=== PATIENT | male | born 1945 | race Caucasian/White ===

== ENCOUNTER 2020-05-19 16:40 | Inpatient (IN) | payer MEDICARE ==
[~2020-05-19] VITALS: Ht 152.4 cm; Wt 46.3 kg
[~2020-05-19 16:40] MED LIST: BENICAR40 MG PO; CLARITIN 10 MG10 MG PO; COZAAR50 MG PO; FARXIGA10 MG PO; FEXOFENADINE HC60 MG PO; FLORINEF 0.1 M0.1 MG PO; GLUCOPHAGE500 MG PO; JANUMET XR 50-1 EACH PO; KAZANO 12.5-1,1 EACH PO; LANTUS INSULIN10 ML SC; MAG 6464 MG PO; MELATONIN 3 MG1 TAB PO; MIDODRINE HCL2.5 MG PO; MIDODRINE HCL5 MG PO; MUCINEX600 MG PO; SYNTHROID25 MCG PO; VITAMIN B-1100 M1 PO
[2020-05-19 17:26] VITALS: BMI 19.9
--- NOTE | 2020-05-19 19:05 | NUR ---
RECIEVED PT SITTING UP IN BED. CL IN REACH. DENIES NEEDS AT THIS TIME. BED IN LOW SIDE RAILS X2. PT IS DEAF. RESP EVEN AND UNLABORED. LUNGS CLEAR. BOWEL ACTIVE X4. CPOC
[2020-05-19 20:00] VITALS: BP 139/75
[2020-05-20 06:06] VITALS: BP 168/84
--- NOTE | 2020-05-20 06:15 | NUR ---
I have reviewed this patient and I concur with the Shift Assessment completed by the Licensed Practical Nurse today this shift.
[2020-05-20 06:21] LABS: BASOPHILS 0.1 % (0-2); EOSINOPHILS 1.4 % (0-7); HEMATOCRIT 32.7 % (42.0-54.0); HEMOGLOBIN 10.8 g/dL (13.5-17.5); IMMATURE GRANULOCYTES 1.6 % (0-5); LYMPHOCYTE ABS# 1.14 10x3/uL (1.32-3.57); MCH 30.3 pg (26.0-34.0); MCV 91.6 fL (80.0-100.0); MEAN PLATELET VOLUME 9.5 fL (7.4-10.4); MONOCYTES 2.8 % (2-11); NEUTROPHIL ABS# 10.78 10x3/uL (1.78-5.38); NEUTROPHILS 85.1 % (40-80); RBC 3.57 10x6/uL (4.20-6.10); RDW 14.2 % (11.5-14.5); WBC 12.7 10x3/uL (4.8-10.8)
[2020-05-20 06:26] LABS: PLATELET COUNT 237 10x3/uL (130-400)
[2020-05-20 06:29] LABS: CALC OSMOLALITY 281 mosm/kg (275-300); CALCIUM 7.5 mg/dL (8.5-10.1); CARBON DIOXIDE 32.6 mmol/L (21.0-32.0); CHLORIDE - SERUM 107 mmol/L (98-107); CREATININE - SERUM 0.6 mg/dL (0.6-1.3); GLUCOSE 97 mg/dL (74-106); SODIUM 142 mmol/L (136-145); UREA NITROGEN 11 mg/dL (7-18); eGFR NON AFRICAN AMERICAN > 90 mL/min (90-120)
[2020-05-20 08:03] VITALS: BP 175/92
--- NOTE | 2020-05-20 09:36 | NUR ---
PATIENT ADMITTED TO REHAB FROM ACUTE FLOOR. HIS PCP IS DR. BLACK. [place] PLANS ARE FOR HIM TO RETURN TO HIS HOME. WILL FOLLOW WITH PATIENT AND WILL ASSIST WITH DC NEEDS.
--- NOTE | 2020-05-20 09:42 | NUR ---
PATIENT REMAINS IN DROPLET ISOLATION. PHYICAL AND OCCUPATIONAL THERAPY IN ROOM WORKING WITH PATIET. DR BLACK INTO SEE PATIENT THIS AM AND NEW ORDERS RECEIVED. PATIENT IS DEAF. CAN COMMUNICATE BY WRITTING NEEDS DOWN OR SIGN LANG. NO NEEDS VOICED AT THIS TIME. WILL CONTINUE WITH PLAN OF CARE.
[2020-05-20 10:46] VITALS: Ht 152.4 cm; Wt 46.3 kg
--- NOTE | 2020-05-20 13:28 | NUR ---
SPEECH THERAPIST IN ROOM. WORKING WITH PATIENT. DROPLET ISOLATION REMAINS
--- NOTE | 2020-05-20 16:10 | NUR ---
EYES OPEN, SITTING UP IN BED WATCHING T.V. CALL LIGHT WITHIN REACH
--- NOTE | 2020-05-20 20:00 | NUR ---
PATIENT RECEIVED SITTING UP IN BED. ASSESSMENT & VITAL SIGNS DONE. NO C/O PAIN OR DISTRESS. FEET ELEVATED ON PILLOW. BED LOW. ALARM ON. CALL LIGHT WITHIN REACH. WILL CONTINUE TO MONITOR.
[2020-05-20 21:00] VITALS: BP 152/80
--- NOTE | 2020-05-21 03:35 | NUR ---
PATIENT EYES CLOSED. RESPIRATIONS 18 & EVEN. BED LOW. CALL LIGHT & BEDSIDE TABLE WITHIN REACH. WILL CONTINUE TO MONITOR.
--- NOTE | 2020-05-21 04:59 | NUR ---
NO LABS TO REVIEW AT THIS TIME. WILL CONTINUE TO MONITOR.
--- NOTE | 2020-05-21 07:50 | NUR ---
PATIENT IS ALERT/ORIENT. DEAF. WRITES DOWN NEEDS OR USING SIGN LANG. TO COMMUNICATE. CALL [facility] WITHIN REACH. STATES NO NEEDS AT THIS TIME. WILL CONTINUE WITH PLAN OF CARE
[2020-05-21 08:00] VITALS: BP 163/84
--- NOTE | 2020-05-21 10:58 | NUR ---
DROPLET ISOLATION REMAINS. PHYSICAL THERAPIST IN PATIENTS ROOM. WORKING WITH PATIENT.
--- NOTE | 2020-05-21 13:43 | NUR ---
PATIENT HELPED INTO BATHROOM. STAND BY ASST WITH WHEELED WALKER
--- NOTE | 2020-05-21 14:37 | NUR ---
PATIENT REMAINS IN DROPLET ISOLATION. EYES CLOSED. CALL LIGHT WITHIN REACH.
--- NOTE | 2020-05-21 20:00 | NUR ---
PATIENT RECEIVED SITTING UP IN BED WATCHING TV. WAVED TO PATIENT, HE WAVED BACK. PATIENT SHOWN STETHOSCOPE. COOPERATIVE WITH ASSESSMENT & VITAL SIGNS. NO C/O PAIN OR DISTRESS. URINAL EMPTIED OF 400 CC OF YELLOW COLOR URINE. BED LOW. ALARM ON. CALL LIGHT & BEDSIDE TABLE WITHIN REACH. WILL CONTINUE TO MONITOR.
[2020-05-21 20:03] VITALS: BP 165/87
--- NOTE | 2020-05-22 00:28 | NUR ---
I have reviewed this patient and I concur with the Shift Assessment completed by the Licensed Practical Nurse today this shift.
--- NOTE | 2020-05-22 03:43 | NUR ---
PATIENT AWAKE ON ROUNDS WATCHING TV. ISOLATION GOWN, N95 MASK,GLOVES ON. PATIENT CALL LIGHT FELL ON FLOOR. URINAL EMPTIED OF 500 CC OF URINE. BED LOW. ALARM ON. CALL LIGHT WITHIN REACH. WILL CONTINUE TO MONITOR.
[2020-05-22 08:00] VITALS: BP 170/93
--- NOTE | 2020-05-22 08:00 | NUR ---
PT RESTING IN BED WITH EYES OPEN CALL LIGHT IN REACH WILL MONITER
--- NOTE | 2020-05-22 17:49 | NUR ---
PT RESTING IN BED WITH EYES OPEN CALL LIGHT IN REACH WILL MONITER
--- NOTE | 2020-05-22 18:37 | NUR ---
I have reviewed this patient and I concur with the Shift Assessment completed by the Licensed Practical Nurse today this shift.
--- NOTE | 2020-05-22 18:40 | NUR ---
I have reviewed this patient and I concur with the Shift Assessment completed by the Licensed Practical Nurse today this shift.
--- NOTE | 2020-05-22 19:40 | NUR ---
PATIENT OFF ISOLATION PER DR. BLACK. ASSESSMENT & VITAL SIGNS DONE. URINAL EMPTIED OF 200 CC OF YELLOW COLOR URINE. NO C/O PAIN OR DISTRESS. WROTE DOWN NEEDS & THEY WERE MET. ALARM ON. CALL LIGHT & SIDETABLE WITHIN REACH. WILL CONTINUE TO MONITOR.
[2020-05-22 19:48] VITALS: BP 162/86
--- NOTE | 2020-05-22 23:25 | NUR ---
I have reviewed this patient and I concur with the Shift Assessment completed by the Licensed Practical Nurse today this shift.
--- NOTE | 2020-05-23 02:27 | NUR ---
PATIENT AWAKE ON ROUNDS. URINAL EMPTIED OF 1000 CC OF CLEAR YELLOW URINE. PATIENT HAD NO NEEDS AT THIS TIME. BED LOW. CALL LIGHT WITHIN REACH. WILL CONTINUE TO MONITOR.
[2020-05-23 06:12] VITALS: BP 171/87
[2020-05-23 09:43] LABS: BASOPHILS 0.2 % (0-2); EOSINOPHILS 0.7 % (0-7); HEMOGLOBIN 11.8 g/dL (13.5-17.5); IMMATURE GRANULOCYTES 0.7 % (0-5); LYMPHOCYTE ABS# 1.18 10x3/uL (1.32-3.57); LYMPHOCYTES 12.2 % (15-50); MCH 30.4 pg (26.0-34.0); MCHC 32.8 g/dL (31.0-37.0); MCV 92.8 fL (80.0-100.0); MEAN PLATELET VOLUME 9.1 fL (7.4-10.4); MONOCYTES 4.1 % (2-11); NEUTROPHIL ABS# 7.95 10x3/uL (1.78-5.38); NEUTROPHILS 82.1 % (40-80); RBC 3.88 10x6/uL (4.20-6.10); WBC 9.7 10x3/uL (4.8-10.8)
[2020-05-23 09:45] LABS: PLATELET COUNT 296 10x3/uL (130-400)
[2020-05-23 09:51] LABS: CALC OSMOLALITY 282 mosm/kg (275-300); CALCIUM 7.9 mg/dL (8.5-10.1); CARBON DIOXIDE 35.5 mmol/L (21.0-32.0); CHLORIDE - SERUM 102 mmol/L (98-107); CREATININE - SERUM 0.6 mg/dL (0.6-1.3); GLUCOSE 234 mg/dL (74-106); POTASSIUM - SERUM 3.2 mmol/L (3.5-5.1); SODIUM 138 mmol/L (136-145); UREA NITROGEN 10 mg/dL (7-18); eGFR NON AFRICAN AMERICAN > 90 mL/min (90-120)
--- NOTE | 2020-05-23 14:59 | NUR ---
PATIENT IS A CLIENT OF [address]
--- NOTE | 2020-05-23 19:05 | NUR ---
RECIEVED PT LYING IN BED WATCHING TV. CL IN REACH. DENIES NEEDS AT THIS TIME. PT IS DEAF AND HAS SPEAKING IMPAIRMENT. BED IN LOW SIDE RAILS X2. BED ALARM ON. RESP EVEN AND UNLABORED. LUNGS CLEAR. BOWEL ACTIVE X4. CPOC
[2020-05-23 20:05] VITALS: BP 178/89
--- NOTE | 2020-05-24 01:24 | NUR ---
I have reviewed this patient and I concur with the Shift Assessment completed by the Licensed Practical Nurse today this shift.
[2020-05-24 08:00] VITALS: BP 170/91
--- NOTE | 2020-05-24 13:53 | NUR ---
Nutrition Re-assessment: Diet: Renal ADA PO intake: 100% x last 4 meals. Patient was OOR at therapy at time of RD visit. Spoke with patient's RN who states that patient needs larger portions because he is eating everything on his tray and would benefit from some weight gain. Last BM: 05/21/20. Wt: 102# (05/20/20) Meds noted: k-dur, thiamin, Magox, metformin Labs noted: K 3.2(L), Glu 234(H), PO4 2.4(L)- 05/18/20 Estimated nutrition needs and nutrition diagnosis unchanged from initial assessment. Recommendations/interventions: -Will change diet to Diabetic as his K is low and most recent PO4 was low, patient does not likely need a potassium and phosphorus restricted diet (renal) in this case. -Will have kitchen send larger portions. -Will continue to honor food preferences. -RD will continue to monitor PO intake and wt trend. -RD will follow-up within 7 days.
--- NOTE | 2020-05-24 19:08 | NUR ---
RECEIVED PT SITTING UP IN BED WATCHING TV. CL IN REACH. DENIES NEEDS AT THIS TIME. BED IN LOW SIDE RAILS X2. BED ALARM ON. PT IS DEAF AND CAN NOT SPEAK. RESP EVEN AND UNLABORED. LUNGS CLEAR. BOWEL ACTIVE X4. CPOC
[2020-05-24 19:20] VITALS: BP 168/87
--- NOTE | 2020-05-25 05:02 | NUR ---
I have reviewed this patient and I concur with the Shift Assessment completed by the Licensed Practical Nurse today this shift.
[2020-05-25 06:58] LABS: CALCIUM 8.5 mg/dL (8.5-10.1); CARBON DIOXIDE 35.9 mmol/L (21.0-32.0); CHLORIDE - SERUM 102 mmol/L (98-107); CREATININE - SERUM 0.6 mg/dL (0.6-1.3); SODIUM 139 mmol/L (136-145); eGFR NON AFRICAN AMERICAN > 90 mL/min (90-120)
[2020-05-25 06:59] LABS: CALC OSMOLALITY 281 mosm/kg (275-300); GLUCOSE 165 mg/dL (74-106); POTASSIUM - SERUM 4.1 mmol/L (3.5-5.1); UREA NITROGEN 13 mg/dL (7-18)
[2020-05-25 07:23] LABS: BASOPHILS 0.8 % (0-2); EOSINOPHILS 1.2 % (0-7); HEMATOCRIT 34.2 % (42.0-54.0); HEMOGLOBIN 11.1 g/dL (13.5-17.5); IMMATURE GRANULOCYTES 0.8 % (0-5); LYMPHOCYTE ABS# 1.63 10x3/uL (1.32-3.57); MCH 30.2 pg (26.0-34.0); MCHC 32.5 g/dL (31.0-37.0); MCV 92.9 fL (80.0-100.0); MEAN PLATELET VOLUME 9.2 fL (7.4-10.4); MONOCYTES 6.3 % (2-11); NEUTROPHIL ABS# 5.43 10x3/uL (1.78-5.38); NEUTROPHILS 69.9 % (40-80); PLATELET COUNT 349 10x3/uL (130-400); RBC 3.68 10x6/uL (4.20-6.10); WBC 7.8 10x3/uL (4.8-10.8)
[2020-05-25 07:27] VITALS: BP 188/96
--- NOTE | 2020-05-25 09:07 | NUR ---
HE IS AWAKE, WRITES ON HIS PAPER. PAIN MED GIVEN FOR HIS LEFT SIDE PAIN. HE TOOK HIS MEDICATIONS WIHTOUT ANY PROBLEMS. THE CALL LIGHT IS WITHIN REACH.
--- NOTE | 2020-05-25 13:43 | NUR ---
TURNED HIM AND PUT ALICIA ON HIS BOTTOM. THE CALL LIGHT IS WITHIN REACH.
--- NOTE | 2020-05-25 19:08 | NUR ---
RECIEVED PT LYING IN BED WATCHING TV. CL IN REACH. DENIES NEEDS AT THIS TIME. BED IN LOW SIDE RAILS X2. PT IS DEAF AND USES SIGN TO COMMUNICATE. RESP EVEN AND UNLABORED. LUNGS CLEAR. BOWEL ACTIVE X4. A/O X4. CPOC
[2020-05-25 20:29] VITALS: BP 166/91
--- NOTE | 2020-05-26 02:06 | NUR ---
I have reviewed this patient and I concur with the Shift Assessment completed by the Licensed Practical Nurse today this shift.
--- NOTE | 2020-05-26 08:00 | NUR ---
PT RESTING IN BED WITH EYES OPEN CALL LIGHT IN REACH WILL MONITER
[2020-05-26 08:06] VITALS: BP 173/96
--- NOTE | 2020-05-26 14:45 | NUR ---
CARE TEAM MEETING: PATIENT IS DOING WELL IN THEREAPY. HIS TENATIVE DC DATE IS 05/31/20. WILL CONTINUE TO FOLLOW WITH PATIENT AND WILL ASSIST WITH HIS DC NEEDS.
--- NOTE | 2020-05-26 18:15 | NUR ---
PT RESTING IN BED WITH EYES OPEN CALL LIGHT IN REACH NO PROBLEMS WILL MONITER
[2020-05-26 20:28] VITALS: BP 174/88
[2020-05-26 21:30] VITALS: BP 168/82
--- NOTE | 2020-05-27 01:56 | NUR ---
2/2 DOSE OF MAG OX GIVEN FOR MAGNESIUM LEVEL OF 1.7. PER PROTOCOL, MAGNESIUM LEVEL ORDERED FOR 0500. PT IS ABLE TO MAKE HIS NEEDS KNOWN BY WRITING DOWN ON PAPER ANY QUESTIONS HE HAS. HE DENIES PAIN OR NEEDS. 300ML OF YELLOW URINE EMPTIED FROM URINAL. HIS BED IS LOW, BED ALARM ON AND CALL LIGHT WITHIN REACH.
[2020-05-27 07:44] LABS: CALC OSMOLALITY 274 mosm/kg (275-300); CALCIUM 8.8 mg/dL (8.5-10.1); CARBON DIOXIDE 34.5 mmol/L (21.0-32.0); CHLORIDE - SERUM 101 mmol/L (98-107); CREATININE - SERUM 0.6 mg/dL (0.6-1.3); GLUCOSE 149 mg/dL (74-106); MAGNESIUM - SERUM 1.7 mg/dL (1.8-2.4); POTASSIUM - SERUM 4.6 mmol/L (3.5-5.1); SODIUM 136 mmol/L (136-145); UREA NITROGEN 13 mg/dL (7-18); eGFR NON AFRICAN AMERICAN > 90 mL/min (90-120)
[2020-05-27 08:00] VITALS: BP 160/89
--- NOTE | 2020-05-27 08:00 | NUR ---
PT RESTING IN BED WITH EYES OPEN CALL LIGHT IN REACH WILL MONITER
--- NOTE | 2020-05-27 18:07 | NUR ---
PT RESTING IN BED WITH EYES OPEN CALL LIGHT IN REACH WILL MONITER
[2020-05-27 19:36] VITALS: BP 169/86
--- NOTE | 2020-05-27 20:00 | NUR ---
PATIENT RECEIVED SITTING UP IN BED WATCHING TV. ASSESSMENT & VITAL SIGNS DONE. NO C/O PAIN OR DISTRESS AT THIS TIME. BED LOW. ALARM ON. CALL LIGHT WITHIN REACH. WILL CONTINUE TO MONITOR.
--- NOTE | 2020-05-28 01:17 | NUR ---
I have reviewed this patient and I concur with the Shift Assessment completed by the Licensed Practical Nurse today this shift.
--- NOTE | 2020-05-28 03:40 | NUR ---
PATIENT USED CALL LIGHT FOR ASSIST. PATIENT MINIMAL TRANSFER IN & OUT OF WHEELCHAIR. MINIMAL ASSIST ON & OFF COMMODE. PATIENT HAD LOOSE STOOL IN BRIEF & ON PANTS. PATIENT REMOVED OWN PANTS & BRIEF. ASSIST WITH CLEANING BM OF PERIAREA & BUTTOCKS. BUTT CREME APPLIED. PATIENT BRIEF ON, PANTS IN WASHER. PATIENT RETURNED TO LOW BED. ALARM ON. CALL LIGHT, URINAL & SIDETABLE WITHIN REACH. WILL CONTINUE TO MONITOR.
--- NOTE | 2020-05-28 07:40 | NUR ---
PATIENT IS ALERT/ORIENT. DEAF. USING SIGN LANG. OR WRITTING ON PAPER TO EXPRESS NEEDS. BED ALARM ON. CALL LIGHT WITHIN REACH. VOICES NO NEEDS AT THIS TIME. WILL CONTINE WITH PLAN OF CARE
[2020-05-28 08:00] VITALS: BP 166/94
[2020-05-28 10:21] VITALS: BP 166/94
--- NOTE | 2020-05-28 10:39 | NUR ---
PATIENT TURNED TREAD BOOKER LIGHT TO USE THE BATHROOM. STAND BY ASST FROM BED TO WHEELCHAIR AND WHEELCHAIR ONTO TOILET
--- NOTE | 2020-05-28 14:56 | NUR ---
I have reviewed this patient and I concur with the Shift Assessment completed by the Licensed Practical Nurse today this shift.
--- NOTE | 2020-05-28 16:30 | NUR ---
PATIENT REFUSED SHOWER.
--- NOTE | 2020-05-28 19:49 | NUR ---
PATIENT RECEIVED SITTING UP IN BED. PATIENT WROTE A NOTE STATING "I HAD A SHOWER YESTERDAY. REFUSED ONE TONIGHT. ASSESSMENT & VITAL SIGNS DONE. NO C/O PAIN OR DISTRESS. BED LOW. ALARM ON. CALL LIGHT & URINAL WITHIN REACH. WILL CONTINUE TO MONITOR.
[2020-05-28 20:02] VITALS: BP 169/106
--- NOTE | 2020-05-29 05:09 | NUR ---
I have reviewed this patient and I concur with the Shift Assessment completed by the Licensed Practical Nurse today this shift.
--- NOTE | 2020-05-29 05:14 | NUR ---
PATIENT AWAKE WATCHING TV. URINAL EMPTIED OF 700 CC OF YELLOW COLOR URINE. BED LOW. CALL LIGHT & URINAL WITHIN REACH. ALARM ON. WILL CONTINUE TO MONITOR.
--- NOTE | 2020-05-29 10:24 | NUR ---
HE IS ALERT. HE HAS A SCAB ON HIS RIGHT ELBOW, PLACED A MEPILEX TO BOTH ELBOWS. APPLIED ALICIA TO HIS RED BOTTOM, SKIN IS INTACT, TURNED HIM TO HIS LEFT SIDE. CLEANED AND PUT ON A NEW BRIEF. THE CALL LIGHT IS WITHIN REACH. GOT HIM A NEWSPAPER TO READ. DENIES ANY PAIN OR ANY OTHER NEEDS.
[2020-05-29 13:28] VITALS: BP 196/105
[2020-05-29 19:00] VITALS: BP 124/70
--- NOTE | 2020-05-29 20:05 | NUR ---
PATIENT RECEIVED SITTING UP IN BED. ASSESSMENT & VITAL SIGNS DONE. NO C/O PAIN OR DISTRESS AT THIS TIME. URINAL, SIDE TABLE, CALL LIGHT WITHIN REACH. WILL CONTINUE TO MONITOR.
--- NOTE | 2020-05-30 00:32 | NUR ---
I have reviewed this patient and I concur with the Shift Assessment completed by the Licensed Practical Nurse today this shift.
--- NOTE | 2020-05-30 02:27 | NUR ---
PATIENT EYES CLOSED. RESPIRATIONS 18 & EVEN. BESIDE TABLE, URINAL & CALL LIGHT WITHIN REACH. WILL CONTINUE TO MONITOR.
--- NOTE | 2020-05-30 07:35 | NUR ---
PT RESTING IN BED WITH EYES OPEN CALL LIGHT IN REACH NO PROBLEMS WILL MONITER
[2020-05-30 07:51] VITALS: BP 133/79
[2020-05-30] MEDS ORDERED: COZAAR50 MG PO (08:53)
--- NOTE | 2020-05-30 08:54 | RHP ---
PATIENT: LADONNA GORE MEDICAL RECORD: [id number] ACCOUNT: [id number] [id number] ADMISSION DATE: 05/19/20 REHABILITATION HISTORY AND PHYSICAL EXAMINATION POST ADMISSION PHYSICIAN EXAMINATION ADMITTING DIAGNOSIS: Disuse myopathy. HISTORY OF PRESENT ILLNESS: The patient is a 74-year-old gentleman who has got a history of hearing impairment, speech impairment, COPD, diabetes. The patient apparently recently was in the Emergency Room with hypotensive. The patient was also tachycardic. He was admitted to the ICU for further evaluation, monitoring and treatment with acute respiratory failure and hypoxia, pneumonia. He was under investigation for COVID. He was placed on isolation at that time. Pulmonary followed him throughout his stay. He was placed on appropriate medications including Zithromax, Rocephin, dexamethasone, Mucinex, Tessalon Perles, melatonin updrafts. He was treated appropriately with GI and DVT prophylaxis. The patient had hypotension secondary to septic shock with lactic acidosis and elevated troponin secondary to demand ischemia. He was placed on BiPAP. He was treated for his low blood counts and other problems. The patient was transferred to the floor on 05/18/2020 and continued to follow his electrolytes. He has been monitored closely for his lab values, cognition, medication adjustments, pain control, decreased strength, proximal muscle weakness, balance deficits, decreased range of motion, gait disturbance, impaired mobility. All of these are barriers to his discharge home at this time. He is currently mid-to-mod assist with ADLs and mod assist with bed mobility and mod assist with ambulation at 56 feet requiring a chair during this secondary to his right knee buckling and shortness of breath. He will require intensive inpatient therapy to get back to his prior level of functioning. COMORBIDITIES: Include acute respiratory failure, anemia, COPD, diabetes, hyponatremia, hypokalemia, hearing loss, pulmonary edema. PAST MEDICAL HISTORY: Significant for diabetes, thyroid problems, respiratory distress, pneumonia, acid reflux. PAST SURGICAL HISTORY: Includes gallbladder surgery. ALLERGIES: No known drug allergies. CURRENT MEDICATIONS: Include thiamine he is on 50 mg daily, mag chloride 64 mg daily, Florinef 0.1 mg daily, he is on Tiffanie 60 mg b.i.d., he is on melatonin 6 mg at bedtime, guaifenesin 600 mg b.i.d., MiraLax 17 grams in 8 ounces of water daily, triamterene 2.5 mg t.i.d. and metformin 500 mg b.i.d. with meals. HABITS: No alcohol or tobacco use. FAMILY HISTORY: Noncontributory. SOCIAL HISTORY: The patient hopes to return back home and get back to his prior level of functioning. REVIEW OF SYSTEMS: GENERAL: He does complain of weakness and fatigue. HEENT: Denies cold, cough or congestion. HISTORY AND PHYSICAL [id number] LADONNA GORE CARDIOVASCULAR: Denies any chest pain. PHYSICAL EXAMINATION: VITAL SIGNS: Stable and afebrile. GENERAL: A very cachectic elderly gentleman in no acute distress upon exam. HEENT: Normocephalic and atraumatic. Mucosa moist. The patient is noted to be deaf. NECK: Supple without no lymphadenopathy. LUNGS: Clear in upper bah. No wheezing or rales. HEART: Regular rate and rhythm. No murmurs, rubs or gallops. ABDOMEN: Soft, benign, nondistended. Positive bowel sounds times 4. EXTREMITIES: No clubbing, cyanosis or edema. NEUROLOGIC: Just got diffuse weakness and debility. LABORATORY DATA: White count is 12.7, H&H of 10.8 and 32.7, platelet count is 237. His sodium is 142, potassium 3.0, BUN and creatinine of 11 and 0.6 and blood sugar was noted to be 97. ASSESSMENT: This is a 74-year-old gentleman admitted to the rehab with a working diagnosis of debility secondary to respiratory distress and prolonged hospitalization. The patient has potential to make improvement. We instituted the following multidisciplinary therapies including, not limited to physical, occupational, respiratory, speech, nutritional services, prosthetics and orthotics. Given his complex medical condition and risks for more complications, rehabilitation services cannot be provided at a low level of care such as halfway facility. PLAN: 1. Admit to [facility] for inpatient therapy to include the following disciplines; A. Physical therapy to improve gait, all transfer skills and bed mobility to a modified independent level. B. Occupational therapy to improve activities of daily living. C. Case management to help with discharge planning and placement options. D. Nutrition to assist with nutritional needs. E. Rehabilitation nursing to assist in monitoring the patient's underlying medical condition and to assist with any type of bowel or bladder management. 2. The patient's current medication and medical care will be continued. 3. The patient will be placed on standard fall precautions. 4. The patient's estimated length of stay is approximately 7-10 days. 5. Discuss this patient during care team staff meeting this week. TRANSINT:[id number] Voice Confirmation ID: [id number] DOCUMENT ID: [id number] EFREN notes whether there has been none or any medical/functional change since admission: - No change since preadmission screen. EFREN attests patient continues to be appropriate for IRF: - Continues to be appropriate. HISTORY AND PHYSICAL [id number] LADONNA GORE JOHN SCOTT MD at 0854 CC: [id number] DICTATION DATE: 05/20/20822 CASKET LINER: 05/20/20 1015 ADM IN [place] [id number] [place] [id number]
--- NOTE | 2020-05-30 13:26 | NUR ---
Nutrition Re-Assessment Diet: Diabetic [facility] Soft (larger portions) PO intake: 75-100% x last 12 meals. Communicated with patient via hand written notes. He was concerned about the potassium and magnesium content in Glucerna oral nutrition supplement. Noted that Glucerna was taken off of his diet order at least over a week ago, however, there were SEVERAL (10+) unopened bottles on his bedside table. He tells me that he did not think that he could drink the Glucerna. I explained to him that I looked at his labs and feel that it would be okay for him to drink Glucerna if he wanted to. He tells me that he would rather just eat more food. I agreed with him that eating foods would be the best way to get nutrition and to use Glucerna as a supplement if he were not able to eat much. He was also concerned about eating bananas. He tells me that he loves to eat bananas and peanut butter. I explained that bananas do have CHO and potassium. I told him that an occational banana would be fine. He was grateful and accepting of information provided in our conversation. Last BM: 05/29/20. Wt: 102# (05/20/20)- no new weight Meds noted: k-dur, thiamin, slomag Labs noted: Glu 149(H), Mag 1.6(L), K 4.6(WNL) Estimated nutrition needs and nutrition diagnosis remain unchanged at this time. He is currently meeting/progressing on nutrition goals at this time. Recommendations/Interventions: -Continue current diet. Will continue to honor food perferences within diet restrictions. -Will continue to monitor PO intake and wt trend. -Needs new weight. -RD will follow-up within 7 days.
--- NOTE | 2020-05-30 19:22 | NUR ---
PT WITH VISITOR IN ROOM. HE DENIES PAIN OR NEEDS AT THIS TIME. HIS BED IS LOW, BED ALARM ON AND CALL LIGHT WITHIN REACH.
[2020-05-30 20:00] VITALS: BP 129/69
--- NOTE | 2020-05-31 07:24 | NUR ---
PT RESTING IN BED WITH EYES OPEN CALL LIGHT IN REACH NO PROBLEMS WILL MONITER
[2020-05-31 08:06] VITALS: BP 151/84
[2020-05-31 08:43] LABS: ALBUMIN 2.5 g/dL (3.4-5.0); ALKALINE PHOSPHATASE 111 U/L (30-120); ALT (SGPT) 41 U/L (10-68); CALC OSMOLALITY 285 mosm/kg (275-300); CARBON DIOXIDE 33.4 mmol/L (21.0-32.0); CHLORIDE - SERUM 100 mmol/L (98-107); CREATININE - SERUM 0.8 mg/dL (0.6-1.3); GLUCOSE 176 mg/dL (74-106); POTASSIUM - SERUM 4.9 mmol/L (3.5-5.1); PROTEIN - SERUM 6.1 g/dL (6.4-8.2); SODIUM 139 mmol/L (136-145); UREA NITROGEN 25 mg/dL (7-18); eGFR NON AFRICAN AMERICAN > 90 mL/min (90-120)
--- NOTE | 2020-05-31 09:39 | NUR ---
PATIENT DISCHARGING HOME TODAY WITH FAMILY. [facility] WILL RESUME THERAPY AT HOME. DOUGIE SIGNED, IMM SERVED AND EXPLAINED, ONE GIVEN TO PATIENT AND ONE FILED IN CHART. NO NEW DME NEEDED AT THIS TIME. DR. BLACK/LYNN 06/06/20 @ 3:15, DR. ANDERS 06/29/20 @ 1:30, DR. HODGES/REID JUAREZ 06/30/20 @ 9:00. NO COMPARE DATA REVIEWED PATIENT WISHES TO CONTINUE WITH CARE 4. DISCHARGE INSTRUCTIONS FAXED TO PCP, HOME HEALTH AND REVIEWED WITH PATIENT.
[2020-05-31] MEDS ORDERED: K-DUR20 MEQ PO (10:31)
--- NOTE | 2020-05-31 12:00 | NUR ---
PT DISCHARGED TO HOME VIA WHEELCHAIR WITH FAMILY MEMBER DISCHARGE SUMMARY AND MEDS REVIEWED ALL MEDS CALLED TO [facility]ARMACY [facility]
== END 2020-05-31 13:34 | disposition home health service (06) | DRG 91 ==
LOC: D.REHAB 16:40
PROVIDERS: ADMIT Emergency Medicine; ATTEND Emergency Medicine
DX: G72.9 Myopathy, unspecified (principal); J96.00 Acute respiratory failure, unspecified whether with hypoxia or hypercapnia; J18.9 Pneumonia, unspecified organism; A41.9 Sepsis, unspecified organism; E87.1 Hypo-osmolality and hyponatremia; J81.1 Chronic pulmonary edema; D64.9 Anemia, unspecified; J44.9 Chronic obstructive pulmonary disease, unspecified; E11.9 Type 2 diabetes mellitus without complications; E87.6 Hypokalemia; H91.90 Unspecified hearing loss, unspecified ear; R53.81 Other malaise